=== PATIENT | male | born 1950 | race Caucasian/White ===

== ENCOUNTER 2016-12-21 12:08 | Inpatient (IN) | payer MEDICARE, BC ==
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
[2016-12-21 12:52] LABS: BASO % 0.4 % (0-6); EOS % 3.2 % (0-6); HEMATOCRIT 33.4 % (42.0-52.0); LYMPH % 10.9 % (16-45); MEAN CORPUSCULAR HEMOGLOBIN 30.6 pg (27-33); MEAN CORPUSCULAR HGB CONC 32.9 g/dl (32-36); MEAN PLATELET VOLUME 8.9 fl (7.4-10.4); MONO % 8.5 % (0-9); PLATELET COUNT 388 K/uL (130-400); RED BLOOD COUNT 3.59 M/uL (4.40-5.70); RED CELL DISTRIBUTION WIDTH 14.2 % (11.5-14.5); WHITE BLOOD COUNT W/O DIFF 15.3 K/uL (4.2-12.2)
[2016-12-21 13:05] LABS: ALB/GLOB RATIO 1.1 (1.1-1.8); ALBUMIN 3.5 gm/dL (3.5-5.0); ALKALINE PHOSPHATASE 75 U/L (38-126); ALT/SGPT 34 U/L (21-72); ANION GAP 9.3 (7-16); AST/SGOT 14 U/L (17-59); BILIRUBIN,TOTAL 0.81 mg/dL (0.2-1.3); BLOOD UREA NITROGEN 18 mg/dL (9-20); CARBON DIOXIDE 26.7 mmol/L (22-30); CREATINE PHOSPHOKINASE 21 U/L (55-170); CREATININE 0.8 mg/dL (0.66-1.25); EST GLOMERULAR FILTRATION RATE > 60 ml/min; GLUCOSE,RANDOM 219 mg/dL (70-110); TOTAL PROTEIN 6.8 gm/dL (6.3-8.2)
[2016-12-21 13:19] LABS: CKMB 1.6 ug/L (0-6)
[2016-12-21 13:21] LABS: TROPONIN I < 0.012 ng/mL (0.00-0.034)
[2016-12-21 14:56] LABS: URINE APPEARANCE CLEAR; URINE BILIRUBIN NEGATIVE (NEGATIVE); URINE BLOOD NEGATIVE (NEGATIVE); URINE COLOR YELLOW; URINE GLUCOSE (UA) NEGATIVE (NEGATIVE); URINE KETONE NEGATIVE (NEGATIVE); URINE LEUKOCYTE ESTERASE NEGATIVE (NEGATIVE); URINE NITRITE NEGATIVE (NEGATIVE); URINE PROTEIN NEGATIVE (NEGATIVE); URINE UROBILINOGEN 0.2 E.U./dL (0.20 - 1.00)
[2016-12-21] MEDS ORDERED: ACETAMINOPHEN 500 MG TABLET PO PRN (15:25)
[2016-12-21] MEDS ORDERED: HYDROCODONE/APAP 5/325MG TABLET PO PRN (15:25)
[2016-12-21] MEDS: AZITHROMYCIN 500 MG TABLET PO SCH (16:09)
[2016-12-21] MEDS: FUROSEMIDE IV 20MG/2ML VIAL IVP SCH (16:09)
[2016-12-21] MEDS: DIAZEPAM 5 MG TABLET PO SCH ×2 (16:09→22:03)
[2016-12-21] MEDS: CEFTRIAXONE SODIUM 2 GM in 0.9 % SODIUM CHLORIDE 100ML 100 ML IVPB SCH (17:15)
[2016-12-21] MEDS: METOPROLOL TART 50 MG TABLET PO SCH (22:03)
[2016-12-21] MEDS: SIMVASTATIN 20 MG TABLET PO SCH (22:03)
[2016-12-22] MEDS: LEVOTHYROXINE SODIUM 100 MCG TABLET PO SCH (05:38)
[2016-12-22 05:56] LABS: HEMATOCRIT 32.4 % (42.0-52.0); HEMOGLOBIN 10.5 gm/dl (14.0-18.0); MEAN CELL VOLUME 92.8 fl (81-97); MEAN CORPUSCULAR HGB CONC 32.4 g/dl (32-36); MEAN PLATELET VOLUME 9.4 fl (7.4-10.4); PLATELET COUNT 417 K/uL (130-400); RED BLOOD COUNT 3.49 M/uL (4.40-5.70); WHITE BLOOD COUNT W/O DIFF 14.8 K/uL (4.2-12.2)
[2016-12-22 06:05] LABS: ALBUMIN 3.3 gm/dL (3.5-5.0); ALKALINE PHOSPHATASE 78 U/L (38-126); ALT/SGPT 40 U/L (21-72); AST/SGOT 15 U/L (17-59); BILIRUBIN,TOTAL 0.95 mg/dL (0.2-1.3); BLOOD UREA NITROGEN 16 mg/dL (9-20); CREATININE 0.8 mg/dL (0.66-1.25); EST GLOMERULAR FILTRATION RATE > 60 ml/min; GLUCOSE,RANDOM 335 mg/dL (70-110); TOTAL PROTEIN 6.6 gm/dL (6.3-8.2)
[2016-12-22 06:16] LABS: TROPONIN I < 0.012 ng/mL (0.00-0.034)
[2016-12-22 06:24] LABS: ANISOCYTOSIS 1+; HYPOCHROMIA 1+; PLATELET ESTIMATE NORMAL (NORMAL)
[2016-12-22] MEDS ORDERED: NOVOLOG FLEXPEN (INSULIN ASPART) 100 UNITS/ML SQ SCH (07:45)
[2016-12-22] MEDS: LEVEMIR FLEXTOUCH 100 UNIT/ML INSULIN PEN SQ SCH (08:16)
[2016-12-22] MEDS: MULTIVITAMINS/MINERALS TABLET PO SCH (09:11)
[2016-12-22] MEDS: ASPIRIN 81 MG TABEC PO SCH (09:11)
[2016-12-22] MEDS: FUROSEMIDE IV 20MG/2ML VIAL IVP SCH ×2 (09:12→16:57)
[2016-12-22] MEDS: METOPROLOL TART 50 MG TABLET PO SCH ×2 (09:12→22:42)
[2016-12-22] MEDS: AMLODIPINE BESYLATE 5MG TAB PO SCH (09:13)
[2016-12-22] MEDS: ENOXAPARIN 40 MG/0.4 ML SYR SQ SCH (09:13)
[2016-12-22] MEDS: ASCORBIC ACID 500 MG TAB PO SCH (09:14)
[2016-12-22] MEDS: DIAZEPAM 5 MG TABLET PO SCH ×3 (09:14→22:43)
[2016-12-22] MEDS: DANTROLENE 50 MG PO SCH (09:14)
[2016-12-22] MEDS: CHOLECALCIFEROL 1,000 UNIT TABLET PO SCH (09:15)
[2016-12-22] MEDS: AZITHROMYCIN 500 MG TABLET PO SCH (09:16)
[2016-12-22] MEDS: PATIENT OWN MED: METHYLPHENIDATE 5 MG PO SCH ×3 (09:17→22:44)
[2016-12-22] MEDS: DRONABINOL 5 MG PO SCH ×3 (09:18→22:43)
[2016-12-22] MEDS: MYCOPHENOLATE 500 MG PO SCH ×3 (09:19→22:43)
[2016-12-22] MEDS: TAMSULOSIN HCL 0.4 MG CAP.ER.24H PO SCH (09:21)
[2016-12-22] MEDS: SERTRALINE HCL 50 MG TABLET PO SCH (09:22)
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
[2016-12-22] MEDS: NOVOLOG FLEXPEN (INSULIN ASPART) 100 UNITS/ML SQ SCH ×2 (12:06→17:45)
[2016-12-22 15:46] LABS: ANION GAP 8.1 (7-16); BLOOD UREA NITROGEN 19 mg/dL (9-20); CARBON DIOXIDE 27.9 mmol/L (22-30); CREATININE 1.2 mg/dL (0.66-1.25); EST GLOMERULAR FILTRATION RATE > 60 ml/min; GLUCOSE,RANDOM 317 mg/dL (70-110)
[2016-12-22] MEDS: CEFTRIAXONE SODIUM 2 GM in 0.9 % SODIUM CHLORIDE 100ML 100 ML IVPB SCH (18:20)
[2016-12-22] MEDS: SIMVASTATIN 20 MG TABLET PO SCH (22:43)
[2016-12-23 06:21] LABS: HEMATOCRIT 31.9 % (42.0-52.0); HEMOGLOBIN 10.3 gm/dl (14.0-18.0); MEAN CORPUSCULAR HGB CONC 32.3 g/dl (32-36); MEAN PLATELET VOLUME 9.4 fl (7.4-10.4); PLATELET COUNT 431 K/uL (130-400); RED BLOOD COUNT 3.43 M/uL (4.40-5.70); WHITE BLOOD COUNT W/O DIFF 11.6 K/uL (4.2-12.2)
[2016-12-23 06:32] LABS: ALBUMIN 3.3 gm/dL (3.5-5.0); ALKALINE PHOSPHATASE 76 U/L (38-126); ALT/SGPT 37 U/L (21-72); ANION GAP 10.8 (7-16); AST/SGOT 17 U/L (17-59); BILIRUBIN,TOTAL 0.88 mg/dL (0.2-1.3); BLOOD UREA NITROGEN 15 mg/dL (9-20); CARBON DIOXIDE 27.2 mmol/L (22-30); CREATININE 0.8 mg/dL (0.66-1.25); EST GLOMERULAR FILTRATION RATE > 60 ml/min; GLUCOSE,RANDOM 298 mg/dL (70-110); TOTAL PROTEIN 6.5 gm/dL (6.3-8.2)
[2016-12-23 06:38] LABS: HYPOCHROMIA 1+; PLATELET ESTIMATE NORMAL (NORMAL)
[2016-12-23] MEDS: LEVOTHYROXINE SODIUM 100 MCG TABLET PO SCH (06:38)
--- NOTE | 2016-12-23 07:31 | RADIOLOGY REPORT ---
EXAM: CHEST, TWO VIEWS HISTORY: COUGH. LOW O2 SATURATION. TECHNIQUE: Upright PA and lateral views of the chest were obtained. Comparison: None. FINDINGS: A left subclavian frhxa-o-gwah catheter is in place with its tip in the upper SVC. The heart is not enlarged. No gross pulmonary venous hypertension is demonstrated. Mixed primarily reticular opacities are noted in the mid and lower lungs. These may related to chronic interstitial change/fibrosis though interstitial edema or interstitial pneumonitis would be difficult to entirely exclude. The lungs and pleural spaces are otherwise clear. There are degenerative changes of the visualized spine and shoulder girdles. IMPRESSION: 1. MIXED PRIMARILY RETICULAR OPACITY PROMINENCE IN THE MID TO LOWER LUNGS. THIS MAY ALL RELATE TO CHRONIC INTERSTITIAL CHANGE THOUGH INTERSTITIAL EDEMA OR INTERSTITIAL PNEUMONITIS WOULD BE DIFFICULT TO EXCLUDE. 2. LEFT SUBCLAVIAN [id number] CATHETER IN PLACE WITH ITS TIP IN THE UPPER SVC. JOB NUMBER: [id number] MTDD
--- NOTE | 2016-12-23 07:42 | CT ANGIOGRAM REPORT ---
EXAM: CT ANGIOGRAM OF THE CHEST FOR PULMONARY EMBOLUS HISTORY: DIFFICULTY IN BREATHING. COUGH. TECHNIQUE: Routine CTA examination of the thorax was performed utilizing a pulmonary embolus protocol with 80 ml of Omnipaque 350 utilized. Coronal and sagittal maximum intensity projection reformatted images are generated and reviewed. Comparison: Same day two view chest radiographic examination. FINDINGS: Opacification of the pulmonary arteries is satisfactory for interpretation. No luminal filling defect is noted in the outflow tract, main arteries, lobar arteries, or proximal segmental arteries to suggest acute pulmonary embolic disease. The heart is near the upper limits of normal in size. No gross coronary artery calcification is seen. There is mild atherosclerosis of the thoracic aorta without focal aneurysmal dilatation nor dissection. Lymphoid tissue in each hilum is borderline to mildly prominent. Several nonenlarged low paratracheal and AP lymph nodes are present. Partially calcified borderline enlarged lymph nodes in the subcarinal region likely relating to granulomatous disease. There are multifocal mixed reticulonodular and ground glass opacities throughout the lungs appearing more pronounced than the opacities demonstrated on same day radiographic examination. These are consistent with edema or pneumonitis. A calcified granuloma is present in the posterior right lung base measuring 8.5 mm in diameter. Small dependent pleural effusions are present. No pneumothorax. The adrenal glands are not enlarged. No calcified gallstone or gallbladder wall thickening. No lytic or blastic bone lesion. There are degenerative changes scattered throughout the visualized spine. A left subclavian [id number]-m-xmod catheter is in place with its tip in the upper SVC. IMPRESSION: 1. NO CT EVIDENCE OF ACUTE PULMONARY EMBOLIC DISEASE. 2. MIXED MULTIFOCAL RETICULONODULAR AND GROUND GLASS OPACITIES THROUGHOUT THE LUNGS APPEARING MORE PRONOUNCED THAN SUGGESTED ON SAME DAY RADIOGRAPHIC EXAMINATION CONSISTENT WITH EDEMA OR PNEUMONITIS. 3. HEALED GRANULOMATOUS DISEASE WITHIN THE MEDIASTINUM AND RIGHT LUNG BASE. 4. MILD LYMPHOID TISSUE PROMINENCE IN THE MOI. THIS IS NONSPECIFIC THOUGH LIKELY REACTIVE/INFLAMMATORY. 5. SMALL DEPENDENT PLEURAL EFFUSIONS. 6. THE HEART IS AT THE UPPER LIMITS OF NORMAL IN SIZE. 7. NOT MENTIONED ABOVE IS AN INTRASPINAL CATHETER IN PLACE WITH ITS TIP AT THE MID THORACIC LEVEL. JOB NUMBER: [id number] [facility]
[2016-12-23] MEDS: LEVEMIR FLEXTOUCH 100 UNIT/ML INSULIN PEN SQ SCH (08:56)
[2016-12-23] MEDS: NOVOLOG FLEXPEN (INSULIN ASPART) 100 UNITS/ML SQ SCH ×4 (09:02→19:01)
[2016-12-23] MEDS: MULTIVITAMINS/MINERALS TABLET PO SCH (10:59)
--- NOTE | 2016-12-23 10:59 | Physician Progress Note ---
Subjective - Date Date of Physician Progress Note: 12/23/16 - Subjective Subjective Comment: 12/23/16-Patient states he is doing well today. He says he only coughed three times today. He did produce a quarter sized amount of brown sputum. He continues to deny feeling short of breath. denies chest pain, fever, chills, fatigue, or decreased appetite. Says he feels like the swelling in his legs has improved. Objective - Vital Signs Vital Signs: Vital Signs - Last 24 Hrs Temp Pulse Pulse Resp BP Pulse Ox 12/23/16 09:00 98.1 F 100 H 100 H 20 132/73 93 L 12/22/16 21:00 95 H 95 H 18 12/22/16 19:57 98.9 F 99 H 22 124/62 90 L 12/22/16 17:00 99.4 F 94 H 18 126/66 94 L - General General Appearance: Alert, Oriented x3, Cooperative, No acute distress Limitations: No limitations - Head Head exam: Atraumatic, Normocephalic, Normal inspection - Eye Eye exam: Normal appearance, PERRL. negative: Conjunctival injection, Periorbital swelling - ENT ENT exam: Normal exam, Mucous membranes moist Ear exam: Normal external inspection Nasal Exam: Normal inspection Mouth exam: Normal external inspection Teeth exam: Normal inspection - Neck Neck exam: Normal inspection, Full ROM. negative: Lymphadenopathy, Tenderness - Respiratory Respiratory exam: Decreased breath sounds, Other (Normal inspection, no erythema of the port site on the left or old on the right). negative: Accessory muscle use, Chest wall tenderness, Prolonged expiratory, Respiratory distress, Rhonchi, Stridor, Wheezes - Cardiovascular Cardiovascular Exam: Regular rate, Normal rhythm, Normal heart sounds Peripheral Pulses: 2+: Radial (R), Radial (L) - GI/Abdominal GI/Abdominal exam: Soft. negative: Tenderness - Rectal Rectal exam: Deferred - exam: Deferred - Extremities Extremities exam: Full ROM, Normal capillary refill. negative: Normal inspection, Pedal edema (resolved), Tenderness - Back Back exam: Reports: Normal inspection, Full ROM. Denies: Muscle spasm, Rash noted, Tenderness - Neurological Neurological exam: Alert, CN II-XII intact, Normal gait, Oriented X3. negative : Altered - Psychiatric Psychiatric exam: Normal affect, Normal mood. negative: Agitated, Anxious - Skin Skin exam: Dry, Intact, Normal color, Warm. negative: Cyanosis, Diaphoretic, Erythema, Mottled Assessment and Plan - Assessment and Plan (1) Pneumonitis Current Visit: Yes Status: Acute Base Code: J18.9 - PNEUMONIA, UNSPECIFIED ORGANISM Comment: 12/23/16- CTA showed possible pneumonitis. clinically improving but still having symptoms with cough productive of brown sputum and decreased oxygen saturation. no fevers, chills, or shortness of breath. WBC count trending downward to 11.6 from 15.3 -will continue rocephin 2gm IV q24H and azithromycin 500mg po daily. If no continued improvement may need to transition to nosocomial regimen as he lives in [facility]. -continues vitals q8H -repeat labs qam -continue supplemental oxygen (2) Hypoxia Current Visit: Yes Status: Acute Base Code: R09.02 - HYPOXEMIA Comment: - stable on supplemental oxygen. Room air sats still at 85% with improvement to 90-94% on 3L. CTA negative for PE. possible pneumonitis vs edema etiology. no wheezing on exam and no history of COPD, asthma. -continue supplemental oxygen to keep sats >90% (3) Pedal edema Current Visit: Yes Status: Acute Base Code: R60.0 - LOCALIZED EDEMA Comment: 12/23/16- resolved. weight continues to trend downwards, 170, 163 and now 159 today. no known history of chf. BNP slightly elevated at 257 while in ED. norvasc may be contributing. -will transition from bid lasix to oral lasix 20mg po daily. -echo ordered and will be performed tomorrow which is earliest available -continue fluid restriction of 2000cc -obtain weight daily (4) T2DM (type 2 diabetes mellitus) Current Visit: Yes Status: Acute Qualifiers: Diabetes mellitus complication status: without complication Diabetes mellitus jail insulin use: with bed bug exterminator use Qualified Code(s): E11.9 - Type 2 diabetes mellitus without complications; Z79.4 - MCC (current) use of insulin Base Code: E11.9 - TYPE 2 DIABETES MELLITUS WITHOUT COMPLICATIONS Comment: - A1C of 7.45. Patient has his own sliding scale he uses at home. blood glucose likely elevated 2/2 infection. -will ajust to our low dose protocol for novolog dosing as his home scale is not currently controlling his BG -will continue accuchecks QID (5) DNR (do not resuscitate) Current Visit: Yes Status: Acute Base Code: Z66 - DO NOT RESUSCITATE Comment: 12/23/16- patient is DNR (6) DVT prophylaxis Current Visit: Yes Status: Acute Base Code: [id number] - Comment: 12/23/16- patient is high risk with age and restricted mobility -lovenox 40mg sq daily Results - Labs Result Diagrams: 12/23/16 06:00 12/23/16 06:00 Labs Last 24 Hours: Laboratory Results - last 24 hr 12/22/16 12/22/16 12/22/16 11:45 15:15 16:45 WBC RBC Hgb Hct MCV MCH MCHC RDW Plt Count MPV Neutrophils % Band Neutrophils % Eosinophils % Basophils % Lymphocytes Monocytes Platelet Estimate Hypochromasia Eosinophil Count Sodium 140 Potassium 3.7 Chloride 104 Carbon Dioxide 27.9 Anion Gap 8.1 BUN 19 Creatinine 1.2 Estimated GFR > 60 POC Glucose 373 H 276 H Random Glucose 317 H Calcium 8.4 L Total Bilirubin AST ALT Alkaline Phosphatase Total Protein Albumin Globulin Albumin/Globulin Ratio 12/23/16 12/23/16 06:00 06:00 WBC 11.6 RBC 3.43 L Hgb 10.3 L Hct 31.9 L MCV 93.0 MCH 30.0 MCHC 32.3 RDW 14.0 Plt Count 431 H MPV 9.4 Neutrophils % 79.0 Band Neutrophils % 2.0 Eosinophils % Not Reportable Basophils % Not Reportable Lymphocytes 12.0 L Monocytes 4.0 Platelet Estimate Normal Hypochromasia 1+ Eosinophil Count 3.0 Sodium 144 Potassium 3.5 Chloride 106 Carbon Dioxide 27.2 Anion Gap 10.8 BUN 15 Creatinine 0.8 Estimated GFR > 60 POC Glucose Random Glucose 298 H Calcium 8.4 L Total Bilirubin 0.88 AST 17 ALT 37 Alkaline Phosphatase 76 Total Protein 6.5 Albumin 3.3 L Globulin 3.2 Albumin/Globulin Ratio 1.0 L DVT/PE Assessment - Risk for VTE Risk for VTE: No Risk Level: Moderate Risk Assessment Date: 12/22/16 Risk Assessment Time: 20:31 VTE Orders Placed or Will Be Placed: Yes - Active Medicaitons Current Medications: Current Medications Hydrocodone Bitart/Acetaminophen ([place] 5mg/325mg) 1 each PO Q4H PRN PRN Reason: Pain - General Amlodipine Besylate (Norvasc) 5 mg PO DAILY [facility] Last Admin: 12/22/16 09:13 Dose: 5 mg Ascorbic Acid (Vitamin C) 1,000 mg PO DAILY [facility] Last Admin: 12/22/16 09:14 Dose: 1,000 mg Aspirin (Ecotrin (Ec)) 81 mg PO DAILY [facility] Last Admin: 12/22/16 09:11 Dose: 81 mg Azithromycin (Zithromax) 500 mg PO DAILY [facility] Last Admin: 12/22/16 09:16 Dose: 500 mg Diazepam (Valium) 5 mg PO TID [facility] Last Admin: 12/22/16 22:43 Dose: 5 mg Enoxaparin Sodium (Lovenox) 40 mg SQ DAILY [facility] Last Admin: 12/22/16 09:13 Dose: 40 mg Furosemide (Lasix Iv) 20 mg IVP BIDDIUR [facility] Last Admin: 12/22/16 16:57 Dose: 20 mg Ceftriaxone Sodium 2 gm/ (Sodium Chloride) 100 mls @ 200 mls/hr IVPB Q24H [facility] Stop: 12/26/16 18:01 Last Infusion: 12/22/16 18:58 Dose: Infused Insulin Aspart (Novolog Flexpen) 1 unit SQ TIDINS [facility] Last Admin: 12/23/16 09:02 Dose: 4 unit Insulin Detemir (Levemir Flextouch) 28 unit SQ DAILYINS [facility] Last Admin: 12/23/16 08:56 Dose: 28 unit Levothyroxine Sodium (Synthroid) 100 mcg PO [id number] [facility] Last Admin: 12/23/16 06:38 Dose: 100 mcg Metoprolol Tartrate (Lopressor) 50 mg PO BID [facility] Last Admin: 12/22/16 22:42 Dose: 50 mg Multivitamins/Minerals (Centrum) 1 tab PO DAILY [facility] Last Admin: 12/22/16 09:11 Dose: 1 tab Patient Own Med: (Dantrolene 50 Mg) 3 each PO DAILY [facility] Last Admin: 12/22/16 09:14 Dose: 3 each Patient Own Med: (Methylphenidate 5 Mg) 1 each PO BID [facility] Last Admin: 12/22/16 22:44 Dose: 1 each Patient Own Med: (Mycophenolate 500 Mg) 1 each PO BID [facility] Last Admin: 07/30/17 22:43 Dose: 1 each Patient Own Med: (Dronabinol 5 Mg) 1 each PO BIDAC [facility] Sertraline HCl (Zoloft) 75 mg PO DAILY [facility] Last Admin: 12/22/16 09:22 Dose: 75 mg Simvastatin (Zocor) 20 mg PO QHS [facility] Last Admin: 12/22/16 22:43 Dose: 20 mg Tamsulosin HCl (Flomax) 0.4 mg PO DAILY [facility] Last Admin: 12/22/16 09:21 Dose: 0.4 mg Vitamin D (Vitamin D3) 2,000 unit PO DAILY [facility] Last Admin: 12/22/16 09:15 Dose: 2,000 unit AMI Plan - Labs Result Diagrams: 12/23/16 06:00 12/23/16 06:00
[2016-12-23] MEDS: ASPIRIN 81 MG TABEC PO SCH (11:00)
[2016-12-23] MEDS: TAMSULOSIN HCL 0.4 MG CAP.ER.24H PO SCH (11:00)
[2016-12-23] MEDS: FUROSEMIDE IV 20MG/2ML VIAL IVP SCH (11:01)
[2016-12-23] MEDS: METOPROLOL TART 50 MG TABLET PO SCH ×2 (11:01→21:27)
[2016-12-23] MEDS: ENOXAPARIN 40 MG/0.4 ML SYR SQ SCH (11:02)
[2016-12-23] MEDS: AMLODIPINE BESYLATE 5MG TAB PO SCH (11:02)
[2016-12-23] MEDS: DANTROLENE 50 MG PO SCH (11:03)
[2016-12-23] MEDS: PATIENT OWN MED: METHYLPHENIDATE 5 MG PO SCH ×2 (11:04→15:58)
[2016-12-23] MEDS: DIAZEPAM 5 MG TABLET PO SCH ×3 (11:05→21:58)
[2016-12-23] MEDS: MYCOPHENOLATE 500 MG PO SCH ×2 (11:05→22:00)
[2016-12-23] MEDS: ASCORBIC ACID 500 MG TAB PO SCH (11:06)
[2016-12-23] MEDS: AZITHROMYCIN 500 MG TABLET PO SCH (11:07)
[2016-12-23] MEDS: CHOLECALCIFEROL 1,000 UNIT TABLET PO SCH (11:07)
[2016-12-23] MEDS: SERTRALINE HCL 50 MG TABLET PO SCH (11:08)
[2016-12-23] MEDS: DRONABINOL 5 MG PO SCH ×2 (11:09→17:32)
[2016-12-23] MEDS: CEFTRIAXONE SODIUM 2 GM in 0.9 % SODIUM CHLORIDE 100ML 100 ML IVPB SCH (17:33)
[2016-12-23] MEDS ORDERED: NOVOLOG FLEXPEN (INSULIN ASPART) 100 UNITS/ML SQ ONE (21:39)
[2016-12-23] MEDS: SIMVASTATIN 20 MG TABLET PO SCH (21:59)
[2016-12-24] MEDS: DRONABINOL 5 MG PO SCH ×2 (06:14→17:36)
[2016-12-24] MEDS: LEVOTHYROXINE SODIUM 100 MCG TABLET PO SCH (06:14)
[2016-12-24 06:24] LABS: MEAN CELL VOLUME 93.7 fl (81-97); MEAN PLATELET VOLUME 9.5 fl (7.4-10.4); PLATELET COUNT 414 K/uL (130-400); RED BLOOD COUNT 3.51 M/uL (4.40-5.70); WHITE BLOOD COUNT W/O DIFF 9.6 K/uL (4.2-12.2)
[2016-12-24 06:27] LABS: ALBUMIN 3.2 gm/dL (3.5-5.0); ALKALINE PHOSPHATASE 71 U/L (38-126); ALT/SGPT 42 U/L (21-72); ANION GAP 10.2 (7-16); AST/SGOT 18 U/L (17-59); BILIRUBIN,TOTAL 0.74 mg/dL (0.2-1.3); BLOOD UREA NITROGEN 19 mg/dL (9-20); CARBON DIOXIDE 30.8 mmol/L (22-30); CREATININE 0.7 mg/dL (0.66-1.25); EST GLOMERULAR FILTRATION RATE > 60 ml/min; GLUCOSE,RANDOM 301 mg/dL (70-110); TOTAL PROTEIN 6.4 gm/dL (6.3-8.2)
[2016-12-24] MEDS: NOVOLOG FLEXPEN (INSULIN ASPART) 100 UNITS/ML SQ SCH ×4 (08:01→22:47)
[2016-12-24] MEDS: PATIENT OWN MED: METHYLPHENIDATE 5 MG PO SCH ×2 (08:06→13:38)
[2016-12-24] MEDS: MULTIVITAMINS/MINERALS TABLET PO SCH (09:42)
[2016-12-24] MEDS: CHOLECALCIFEROL 1,000 UNIT TABLET PO SCH (09:43)
[2016-12-24] MEDS: ASCORBIC ACID 500 MG TAB PO SCH (09:43)
[2016-12-24] MEDS: METOPROLOL TART 50 MG TABLET PO SCH ×2 (09:43→22:33)
[2016-12-24] MEDS: AZITHROMYCIN 500 MG TABLET PO SCH (09:43)
[2016-12-24] MEDS: DIAZEPAM 5 MG TABLET PO SCH ×3 (09:43→22:33)
[2016-12-24] MEDS: ASPIRIN 81 MG TABEC PO SCH (09:43)
[2016-12-24] MEDS: LEVEMIR FLEXTOUCH 100 UNIT/ML INSULIN PEN SQ SCH (09:44)
[2016-12-24] MEDS: AMLODIPINE BESYLATE 5MG TAB PO SCH (09:44)
[2016-12-24] MEDS: SERTRALINE HCL 50 MG TABLET PO SCH (09:44)
[2016-12-24] MEDS: TAMSULOSIN HCL 0.4 MG CAP.ER.24H PO SCH (09:44)
[2016-12-24] MEDS: FUROSEMIDE 20 MG TABLET PO SCH (09:44)
[2016-12-24] MEDS: ENOXAPARIN 40 MG/0.4 ML SYR SQ SCH (09:46)
[2016-12-24] MEDS: MYCOPHENOLATE 500 MG PO SCH ×2 (09:48→22:33)
[2016-12-24] MEDS: DANTROLENE 50 MG PO SCH (09:48)
[2016-12-24 12:50] LABS: HEP A AB IGM Nonreactive (Nonreactive); HEPATITIS B CORE ANTIBODY,IGM Nonreactive (Nonreactive); HEPATITIS B SURFACE ANTIGEN Nonreactive (Nonreactive)
[2016-12-24] MEDS ORDERED: METHYLPREDNISOLONE PF 125MG/VIAL IVP ONE (13:05)
[2016-12-24 17:07] LABS: HEPATITIS C VIRUS ANTIBODY Reactive (Nonreactive)
[2016-12-24] MEDS: CEFTRIAXONE SODIUM 2 GM in 0.9 % SODIUM CHLORIDE 100ML 100 ML IVPB SCH (19:01)
[2016-12-24] MEDS: SIMVASTATIN 20 MG TABLET PO SCH (22:34)
[2016-12-25] MEDS: LEVOTHYROXINE SODIUM 100 MCG TABLET PO SCH (06:23)
[2016-12-25] MEDS: DRONABINOL 5 MG PO SCH (06:24)
[2016-12-25] MEDS: PATIENT OWN MED: METHYLPHENIDATE 5 MG PO SCH ×2 (08:09→13:41)
[2016-12-25] MEDS: NOVOLOG FLEXPEN (INSULIN ASPART) 100 UNITS/ML SQ SCH ×3 (08:09→17:17)
[2016-12-25] MEDS: ASPIRIN 81 MG TABEC PO SCH (09:16)
[2016-12-25] MEDS: TAMSULOSIN HCL 0.4 MG CAP.ER.24H PO SCH (09:16)
[2016-12-25] MEDS: ASCORBIC ACID 500 MG TAB PO SCH (09:17)
[2016-12-25] MEDS: AZITHROMYCIN 500 MG TABLET PO SCH (09:17)
[2016-12-25] MEDS: CHOLECALCIFEROL 1,000 UNIT TABLET PO SCH (09:18)
[2016-12-25] MEDS: AMLODIPINE BESYLATE 5MG TAB PO SCH (09:19)
[2016-12-25] MEDS: ENOXAPARIN 40 MG/0.4 ML SYR SQ SCH (09:19)
[2016-12-25] MEDS: DIAZEPAM 5 MG TABLET PO SCH ×2 (09:19→16:04)
[2016-12-25] MEDS: SERTRALINE HCL 50 MG TABLET PO SCH (09:20)
[2016-12-25] MEDS: LEVEMIR FLEXTOUCH 100 UNIT/ML INSULIN PEN SQ SCH (09:21)
[2016-12-25] MEDS: DANTROLENE 50 MG PO SCH (09:23)
[2016-12-25] MEDS: MYCOPHENOLATE 500 MG PO SCH (09:23)
[2016-12-25] MEDS: FUROSEMIDE 20 MG TABLET PO SCH (09:24)
[2016-12-25] MEDS: METOPROLOL TART 50 MG TABLET PO SCH (09:25)
[2016-12-25] MEDS: MULTIVITAMINS/MINERALS TABLET PO SCH (09:25)
--- NOTE | 2016-12-25 17:01 | Discharge Note ---
VTE H&P Assessment - Risk for VTE Risk for VTE: No Risk Level: Moderate Risk Assessment Date: 12/22/16 Risk Assessment Time: 20:31 VTE Orders Placed or Will Be Placed: Yes Discharge Medications - Discharge Medications Prescriptions: Azithromycin [Zithromax] 500 mg PO DAILY #10 tab Cephalexin [Keflex] 500 mg PO QID #40 cap Insulin Glargine,Hum.rec.anlog [Lantus] 32 unit SQ QAM #1 vial Home Medications: Ambulatory Orders Amlodipine Besylate [Norvasc] 5 mg PO DAILY 02/19/16 [Last Taken 02/19/16] Ascorbic Acid [C-1000] 1,000 mg PO DAILY 02/19/16 [Last Taken 02/19/16] Aspirin [Aspirin EC] 81 mg PO DAILY 02/19/16 [Last Taken 02/19/16] Cholecalciferol (Vitamin D3) [Vitamin D3] 2,000 unit PO DAILY 02/19/16 [Last Taken 02/19/16] Dantrolene Sodium [Dantrium] 3 cap PO DAILY 02/19/16 [Last Taken 02/19/16] Diazepam [Valium] 7.5 mg PO 0800,1300,1700,2000 02/19/16 [Last Taken 02/19/16] Dronabinol [Marinol] 5 mg PO BIDAC 02/19/16 [Last Taken 02/19/16] Hydrocodone/Acetaminophen [[place] 5mg/325mg] 1 each PO Q4H PRN 02/19/16 [Last Taken 02/19/16] Insulin Lispro [Humalog] 0 units SQ QIDINS 02/19/16 [Last Taken 02/19/16] Levothyroxine Sodium [Synthroid] 100 mcg PO DAILYTHY 02/19/16 [Last Taken ] Metoprolol Tartrate [Lopressor] 50 mg PO BID 02/19/16 [Last Taken 02/19/16] Multivitamin [Multi-Vitamin Daily] 1 each PO DAILY 02/19/16 [Last Taken 02/19/16 ] Mycophenolate Mofetil [Cellcept] 500 mg PO BID 02/19/16 [Last Taken 02/19/16] Sertraline HCl [Zoloft] 75 mg PO DAILY 02/19/16 [Last Taken 02/19/16] Simvastatin [Zocor] 20 mg PO QHS 02/19/16 [Last Taken 02/19/16] Tamsulosin HCl [Flomax] 0.4 mg PO DAILY 02/19/16 [Last Taken 02/19/16] Methylphenidate HCl [Ritalin] 5 mg PO 0800,1300 12/21/16 [Last Taken Unknown] Azithromycin [Zithromax] 500 mg PO DAILY #10 tab 12/25/16 [Last Taken Unknown] Cephalexin [Keflex] 500 mg PO QID #40 cap 12/25/16 [Last Taken Unknown] Insulin Glargine,Hum.rec.anlog [Lantus] 32 unit SQ QAM #1 vial 12/25/16 [Last Taken Unknown] Discharge Note - Date Date of Discharge Note: 12/25/16 Disposition: Home, Self-Care Condition: (2) Stable Instructions: Hepatitis C (DC), Hepatitis C (GEN) Additional Instructions: follow up with Dr. Jameson in one week home oxygen at 2 liters per minute GI consult next week because of positive hep C antibody and the Hep C RNA is pending to clincal symptoms of active hepatitis. Continue Humalog before meals with his scale Patient may need a pulmonary consult after seeing Dr. Jameson for interstitual disease and pneumonia Referrals: JOSEP CEDEÑO [Primary Care Provider] - Forms: Patient Portal Access
[2016-12-25 18:27] LABS: HEMATOCRIT 33.5 % (42.0-52.0); HEMOGLOBIN 10.6 gm/dl (14.0-18.0); MEAN CELL VOLUME 94.9 fl (81-97); MEAN CORPUSCULAR HGB CONC 31.6 g/dl (32-36); MEAN PLATELET VOLUME 8.9 fl (7.4-10.4); PLATELET COUNT 528 K/uL (130-400); RED BLOOD COUNT 3.53 M/uL (4.40-5.70); RED CELL DISTRIBUTION WIDTH 14.1 % (11.5-14.5); WHITE BLOOD COUNT W/O DIFF 13.3 K/uL (4.2-12.2)
[2016-12-25 18:44] LABS: HEMOGLOBIN 10.5 gm/dl (14.0-18.0); MEAN CORPUSCULAR HEMOGLOBIN 29.9 pg (27-33)
[2016-12-25 18:45] LABS: HEMATOCRIT 34.7 % (42.0-52.0); MEAN CORPUSCULAR HGB CONC 30.3 g/dl (32-36)
--- NOTE | 2016-12-25 22:54 | Discharge Summary ---
DATE OF DISCHARGE: 12/25/16, about 5:47 p.m. DISCHARGE DIAGNOSES: 1. BILATERAL PNEUMONIA. 2. INTERSTITIAL LUNG DISEASE. 3. HEPATITIS C ANTIBIOTIC POSITIVE. THE HEPATITIS C RNA IS PENDING. HE HAS NO CLINICAL SYMPTOMS OF HEPATITIS. 4. STIFF PERSONS DISEASE. 5. HYPOTHYROIDISM. 6. BENIGN PROSTATIC HYPERPLASIA. 7. DEMENTIA. 8. DIABETES MELLITUS. 9. HISTORY OF BLOOD TRANSFUSIONS IN THE PAST. 10. PATIENT DENIES ANY KNOWLEDGE OF HEPATITIS C IN THE PAST. 11. THE PATIENT IS A DO NOT RESUSCITATE PATIENT. 12. THE PATIENT HAS HYPOXIA REQUIRING HOME OXYGEN, NEVER HAD THIS BEFORE, 2 LITERS PER MINUTE/NASAL CANNULA. 13. ELEVATED HEMOGLOBIN. HE MAY NEED TO SEE A BEZEL CUTTER FOR HIS ELEVATED HEMOGLOBIN. ATTENDING PHYSICIAN: LAW RUSSO D.O. REASON FOR HOSPITALIZATION: This 66-year-old male presented from [facility] to the Emergency Department, evaluated by Dr. Shaw, with low oxygen levels and elevated blood sugar. He has had a cough for the last two weeks, coughing up brown sputum. He smoked a pipe when he was younger in the . No history of coronary artery disease, MIs or COPD. 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 He was admitted to the hospital for bilateral pneumonia, interstitial lung disease, and hypoxia. He was requiring 3 liters of O2 nasal cannula when he came in through the Emergency Department. SIGNIFICANT FINDINGS FROM EXAMINATION: A chest x-ray showed a mixed, primarily reticular opacity prominence in the mid to lower lungs bilateral. This may be related to chronic interstitial changes through interstitial edema or interstitial pneumonitis would be difficult to exclude. There is a left subclavian [id number] catheter in place with the tip in the upper SVC. A CT angiogram of the chest revealed no pulmonary embolism. The mixed multifocal reticular nodule and ground-glass opacities throughout the lung appearing more pronounced than suggested on the same-day chest x-ray consistent with edema or pneumonitis. Healed granulomatous disease within the mediastinum and right lung base. Mild lymphoid tissue prominence in the johnna. This is nonspecific, though likely reactive and inflammatory. Small dependent pleural effusions. The heart is in the upper limits of the normal range in size. Not mentioned above is an inner spinal catheter in place with its tip at the mid thoracic level. Laboratory: The WBC in the ER was 15,300. Hemoglobin was 11.0. The last CBC done was on 12/24/16, which showed a white count of 9,600 and hemoglobin of 10.3. Platelet count is elevated at 414. Actually, the hemoglobin is reported back at 22. I am going to check on that to see if there is an error with that. His potassium on discharge was 3.7. Hemoglobin, A1C was 7.45. His sugars were running high throughout the hospitalization. I recommend he bump up his Lantus to 32 Units in the morning and continue the scale before meals. Cardiac enzymes x2 were negative. NT-proB was normal for his age. UA was negative. He has hepatitis C antibody. There was an employee that got stuck by a needle drawing his blood and they did the hepatitis series plus HIV. His fast was rapid. His HIV test was nonreactive or negative. His hepatitis C antibody came back positive. They sent out a hepatitis C RNA quantitative that is still pending. He has no symptoms of hepatitis C. I talked to the son and told him they will need to see a GI doctor to try and work through this hepatitis C antibody positive. He had blood transfusions in the past and I am not sure if there are any other risk factors in his past. He is not a very good historian at this point because of his dementia. THERAPY PROVIDED AND RESPONSE TO THERAPY: The patient was gradually improving. His oxygen requirements went down to 2 liters per minute. He still dropped down on room air to 85% and when he ambulated with 2 liters, he kept his oxygens in the 90s. HOSPITAL COURSE: Gradually improved. CONDITION AT DISCHARGE: Stable and improved. DISCHARGE INSTRUCTIONS: 1. Follow-up with Dr. Enciso in one week. 2. Home oxygen at 2 liters per minute/nasal cannula. 3. Azithromycin 500 mg every day for ten days. 4. Keflex 500 mg four times a day for ten days. 5. Increase the Lantus to 32 Units in the morning. 6. Continue the Humalog before meals by his scale. 7. Continue his other home medications: Ritalin 5 mg twice a day Valium 7.5 mg four times a day Gilbert every four hours prn Marinol 5 mg b.i.d. Levothyroxine 100 mcg every day Humalog by scale Flomax 0.4 mg every day Zocor 20 mg every h.s. Sertraline 75 mg every day Cellcept 500 mg b.i.d. Multivitamins one every day Lopressor 50 mg b.i.d. Dantrolene three caps daily Vitamin D3 2000 Units daily Aspirin 81 mg every day Vitamin C 1000 mg every day Amlodipine 5 mg every day Lantus moved up to 32 Units every a.m. Keflex and Azithromycin for ten days JOB NUMBER: [id number] ADDENDUM: Dictated 12/25/161847. The CBC hemoglobin of yesterday was 22. The previous day, the hemoglobin was 10.3, which didnt make sense. I called the Lab. They redid the hemoglobin in the same tube that was done yesterday and it came back at 10. They will correct the chart. The repeat CBC today showed a hemoglobin of 10.6, so he has been holding steady at about 10.6 throughout this hospitalization. He has a little anemia, possibly due to chronic disease and at this point, if anything, he needs to be worked up for a low-grade anemia. His white count today was 13,300 and his hemoglobin was 10.6. I told the patient and his son, Chivo, that the hemoglobin was thick initially and we were going to repeat it to confirm it and went back and told him that his blood is not thick, if anything it is slightly low and this will have to be followed as an outpatient. So, at this point he does not need to see a Drill Rig Operator. Barbaral just follow-up with Dr. Enciso for further evaluation. cc: Dr. Enciso ADDENDUM JOB NUMBER: [id number] MTDD
[2016-12-27 22:36] LABS: HEP C QUANT V LOAD Not Detected (Not Detected)
[2016-12-27 22:36] LABS: HEP C RNA QUANT V-LOAD Not Detected (Not Detected)
== END 2016-12-25 20:30 | disposition home or self-care (01) | DRG 194 ==
LOC: ER 12:08 → MEDSURG 14:58
PROVIDERS: ADMIT Family Medicine; ATTEND Family Medicine
DX: J18.9 Pneumonia, unspecified organism (principal); R09.02 Hypoxemia; R60.0 Localized edema; J84.9 Interstitial pulmonary disease, unspecified; G25.82 Stiff-man syndrome; E03.9 Hypothyroidism, unspecified; N40.0 Benign prostatic hyperplasia without lower urinary tract symptoms; F03.90 Unspecified dementia, unspecified severity, without behavioral disturbance, psychotic disturbance, mood disturbance, and anxiety; E11.9 Type 2 diabetes mellitus without complications; Z79.4 Long term (current) use of insulin; Z66 Do not resuscitate; B19.20 Unspecified viral hepatitis C without hepatic coma
CPT/HCPCS: 99285 ×2; 82550; 85025; 82553; 84484; 80053; 36416; 83036; 82948; 81003; 84443; 85379; 83880; 71020; 71275; 94760; 93005; 93010; Q9967; 80048; 85027; 86705; 86803; 87340; 87390; 87522; 87902; 94620; 94761; 99223; 99233; 99239; J1650; J1940; J2930